=== PATIENT | female | born 1960 | race Caucasian/White ===

== ENCOUNTER 2019-12-22 17:06 | Outpatient (REF) | payer BC, SELFPAY ==
[2019-12-22 19:26] LABS: TSH (W/Ref FT4) 4.37 uIU/mL (0.36-3.74)
[2019-12-22 19:44] LABS: FREE T4 0.75 ng/dL (0.76-1.46)
== END 2019-12-22 17:26 ==
LOC: NCHCN 17:06
PROVIDERS: PCP Internal Medicine; Visit Provider Nurse Practitioner Family
DX: E03.9 Hypothyroidism, unspecified (principal)
CPT/HCPCS: 84439; 84443

== ENCOUNTER 2020-02-12 18:50 | Outpatient (REF) | payer BC, SELFPAY ==
[2020-02-12 19:39] LABS: FREE T4 0.85 ng/dL (0.76-1.46); TSH 2.29 uIU/mL (0.36-3.74)
[2020-02-16 09:57] LABS: Thyroglobulin Antibody 16 U/mL (<=60); Thyroperoxidase Antibody <28 U/mL (<=60)
== END 2020-02-12 19:10 ==
LOC: NCHCN 18:50
PROVIDERS: PCP Internal Medicine; Visit Provider Nurse Practitioner Family
DX: E03.9 Hypothyroidism, unspecified (principal)
CPT/HCPCS: 86376; 84439; 84443

== ENCOUNTER 2021-12-29 16:25 | Outpatient (REF) | payer BC, SELFPAY ==
--- NOTE | 2021-12-29 16:00 | PAPFT_PTH ---
PATIENT: More Bond LOC: [facility]#:[id number] AGE/SX: 61/F ROOM: RE12/29/[address]: Yaz Zuniga : 1960 BED: DIS: 12/29/2021 SPEC #: [id number] RECD: 12/29/21 18:26 STATUS: RUDI REQ #: [id number] ASTRID: 12/29/21 16:[address]: Edda Zunigalaide DEPT: [facility] Cytology RECD BY: Lenore Gardner ENTERED: 12/29/21 18:26 SP TYPE: PAPFT OTHR DR: Francisco J Garrido Tissues: 1 - CX/ENDOCX FOR PAP SMEARS Procedures: PAP THIN PREP/[facility] Screening HPV DNA PROBE Comments: [id number]
== END 2021-12-29 16:26 | disposition home or self-care (01) ==
LOC: NCHCN 16:25
PROVIDERS: PCP Internal Medicine; Visit Provider Nurse Practitioner Family
DX: Z12.4 Encounter for screening for malignant neoplasm of cervix (principal); Z11.51 Encounter for screening for human papillomavirus (HPV); R87.610 Atypical squamous cells of undetermined significance on cytologic smear of cervix (ASC-US)
CPT/HCPCS: 88142; 87624

== ENCOUNTER 2021-12-29 16:30 | Outpatient (REF) | payer BC, SELFPAY | END 2021-12-29 16:31 | disposition home or self-care (01) | LOC: LBN 16:30 | PROVIDERS: PCP Internal Medicine; Visit Provider Nurse Practitioner Family ==

== ENCOUNTER 2023-05-31 18:00 | Emergency (ER) | payer SELFPAY ==
[2023-05-31 17:57] VITALS: BP 165/91; PULSE 87; RESP 16; TEMP 36.3; O2SAT 93
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
== END 2023-05-31 18:34 | disposition home or self-care (01) ==
LOC: ER 18:47
PROVIDERS: Emergency Provider Physician Assistant; PCP Internal Medicine
DX: F10.129 Alcohol abuse with intoxication, unspecified (principal)
CPT/HCPCS: 99282; 99283